=== PATIENT | female | born 2000 | race Hispanic/Latino ===

== ENCOUNTER 2023-04-04 13:35 | Emergency (ER) | payer OTHER ==
[~2023-04-04] VITALS: Ht 154.9 cm; Wt 56.7 kg
[2023-04-04 15:27] VITALS: BP 124/70; PULSE 78; RESP 18; O2SAT 98
== END 2023-04-04 15:35 | disposition home or self-care (01) ==
LOC: EDH 13:35
DX: I95.9 Hypotension, unspecified (principal); R55 Syncope and collapse; R53.1 Weakness
CPT/HCPCS: 93005

== ENCOUNTER 2023-08-03 20:04 | Emergency (ER) | payer BC, OTHER ==
[~2023-08-03] VITALS: Ht 154.9 cm; Wt 59.4 kg
[2023-08-03] MEDS: ACETAMINOPHEN 500 MG TABLET PO ONE (21:07)
[2023-08-03 21:32] LABS: RAPID GROUP A STREP positive (NEGATIVE)
[2023-08-03 21:33] LABS: SARS-CoV-2, RNA, NAAT NEGATIVE SARS CoV-2 (NEGATIVE)
[2023-08-03 21:39] LABS: INFLUENZA TYPE A Negative For Type A (NEGATIVE); INFLUENZA TYPE B Negative For Type B (NEGATIVE)
[2023-08-03 23:30] VITALS: BP 118/74; PULSE 100; RESP 20; O2SAT 100
[2023-08-04] MEDS ORDERED: PENI500T2 PO (00:05)
[2023-08-04] MEDS ORDERED: PRED20TA3 PO (00:05)
[2023-08-04] MEDS ORDERED: IBUP-2070 PO (00:05)
[2023-08-04] MEDS: CEFTRIAXONE 1G VIAL IM ONE (00:07)
[2023-08-04 00:10] VITALS: TEMP 99.1
[2023-08-04] MEDS: PREDNISONE 20 MG TABLET PO ONE (00:21)
== END 2023-08-04 00:28 | disposition home or self-care (01) ==
LOC: EDH 20:04
DX: J02.0 Streptococcal pharyngitis (principal); J45.909 Unspecified asthma, uncomplicated; Z20.822 Contact with and (suspected) exposure to COVID-19; Z98.890 Other specified postprocedural states
CPT/HCPCS: 99284; 87635; 87880; 87804 ×2; 96372; J0696

== ENCOUNTER 2024-04-19 23:54 | Emergency (ER) | payer BC ==
[~2024-04-19] VITALS: Ht 154.9 cm; Wt 59.0 kg
[~2024-04-19 23:54] MED LIST: IBUP-2070 PO; PENI500T2 PO; PRED20TA3 PO
[2024-04-20 00:16] LABS: APPEARANCE,URINE CLEAR (CLEAR); BILIRUBIN,URINE NEGATIVE (NEGATIVE); COLOR,URINE LIGHT-YELLOW (YELLOW); GLUCOSE, URINE (UA) NEGATIVE (NEGATIVE); KETONES,URINE NEGATIVE (NEGATIVE); LEUKOCYTE ESTERASE ,URINE NEGATIVE Leu/uL (NEGATIVE); NITRATE,URINE NEGATIVE (NEGATIVE); OCCULT BLOOD,URINE LARGE (NEGATIVE); PH,URINE 5.5 (5.0-8.0); PROTEIN,URINE NEGATIVE (NEGATIVE); UROBILINOGEN,URINE 0.2 mg/dL (0.2-1.0)
[2024-04-20 00:19] LABS: ADD UA MICROSCOPIC YES; HCG,QUALITATIVE URINE NEGATIVE (NEGATIVE)
[2024-04-20 00:20] LABS: BACTERIA,URINE RARE /HPF (None Seen); MUCUS,URINE RARE LPF (None Seen); SQUAMOUS EPITHELIAL CELL,UR RARE /HPF (0-2); WBC,URINE 0-1 /HPF (0-1)
[2024-04-20] MEDS: HYDROcodone/APAP 5/325 1 TAB TABLET PO ONE (00:58)
[2024-04-20 01:01] LABS: BASOPHILS # (AUTO) 0.04 K/uL (0.00-0.20); BASOPHILS % (AUTO) 0.6 % (0.0-5.0); EOSINOPHILS # (AUTO) 0.16 K/uL (0.00-0.70); EOSINOPHILS % (AUTO) 2.4 % (0.0-8.0); IMMATURE GRANULOCYTE ABSOLUTE 0.02 K/uL (0-1); LYMPHOCYTES # (AUTO) 2.8 K/uL (1.0-4.8); MEAN CORPUSCULAR HEMOGLOBIN 31.3 pg (27.0-33.0); MEAN CORPUSCULAR HGB CONC 34.1 g/dL (32.0-36.0); MONOCYTES # (AUTO) 0.6 K/uL (0.1-1.0); MONOCYTES % (AUTO) 9.1 % (3.0-13.0); NEUTROPHILS # (AUTO) 3.1 K/uL (1.8-7.7); NEUTROPHILS % (AUTO) 45.6 % (40.0-77.0); PLATELET COUNT (AUTO) 235 K/uL (130-400); RED BLOOD CELL COUNT(AUTO) 4.02 MIL/uL (4.00-5.50); RED CELL DISTRIBUTION WIDTH 10.9 % (11.0-15.5); WHITE BLOOD COUNT (AUTO) 6.7 K/uL (4.8-10.8)
[2024-04-20 01:09] LABS: CREATININE 0.9 mg/dL (0.5-1.0); POTASSIUM 4.2 mmol/L (3.5-5.1)
[2024-04-20] MEDS ORDERED: KETO10 PO (03:10)
[2024-04-20] MEDS ORDERED: ONDA-243 PO (03:10)
[2024-04-20] MEDS ORDERED: TAMS-1 PO (03:10)
--- NOTE | 2024-04-20 03:11 | ERN ---
ED Note History of Present Illness Stated Complaint: LEFT FLANK PAIN Chief Complaint: Flank Pain Time Seen by MD: 23:58 Allergies: Coded Allergies: No Known Drug Allergies (Unverified Allergy, Unknown, 04/04/23) Home Meds Active Scripts Prednisone (Prednisone) 20 Mg Tablet, 2 TAB PO DAILY for 5 Days, #10 TAB 0 Refills Prov:JAY BAUTISTA SCREENER AND BLENDER 08/04/23 Ibuprofen (Ibuprofen) 600 Mg Tablet, 600 MG PO Q6H PRN for PAIN, #30 TAB Prov:JAY BAUTISTA SCREENER AND BLENDER 08/04/23 Penicillin V Potassium (Penicillin V Potassium) 500 Mg Tablet, 500 MG PO BID for 10 Days, #20 TAB Prov:JAY BAUTISTA SCREENER AND BLENDER 08/04/23 Past Medical History Dictation 23-year-old female with past medical history of polycystic ovarian disease presents with left flank that radiates to her left groin x2 days in duration. Patient reports intermittent nausea without vomiting. Patient denies fevers cough, syncope change in appetite focal neurological deficits, abdominal and chest pain, shortness of breath, vaginal discharge Past Medical History: Asthma, High Cholesterol, Other Additional Past Medical Hx: PCOS Surgical History: None Family History: Negative Social History: Negative, Lives with family History: Not Applicable LMP: Apr 08, 2024 Review of System Dictation See HPI Initial Vital Sign VS Vital Signs Date Time Temp Pulse Resp B/P (MAP) Pulse Ox O2 Delivery O2 Flow Rate FiO2 04/19/24 23:56 97.9 78 18 121/87 99 Room Air 0 04/20/24 01:03 21 Physical Exam Dictation Uncomfortable appearing, normal BMI tenderness to left flank/CVA region, abdomen is soft, nontender, non peritoneal no suprapubic, heart rate and Results (Laboratory/Radiology) Laboratory/Radiology Laboratory Tests Test 04/20/24 00:07 04/20/24 00:52 Urine Color LIGHT-YELLOW (YELLOW) Urine Appearance CLEAR (CLEAR) Urine pH 5.5 (5.0-8.0) Urine Specific [place] 1.022 (1.001-1.031) Urine Protein NEGATIVE mg/dL (NEGATIVE) Urine Glucose (UA) NEGATIVE mg/dL (NEGATIVE) Urine Ketones NEGATIVE mg/dL (NEGATIVE) Urine Occult Blood LARGE (NEGATIVE) H Urine Nitrate NEGATIVE (NEGATIVE) Urine Bilirubin NEGATIVE mg/dL (NEGATIVE) Urine Urobilinogen 0.2 mg/dL (0.2-1.0) Urine Leukocyte Esterase NEGATIVE Carrie/uL Urine RBC 6-10 /HPF (0-1) H Urine WBC 0-1 /HPF (0-1) Urine Squamous Epithelial Cells RARE /HPF (0-2) Urine Bacteria RARE /HPF (None Seen) Urine HCG, Qualitative NEGATIVE (NEGATIVE) White Blood Count 6.7 K/uL (4.8-10.8) Red Blood Count 4.02 MIL/uL (4.00-5.50) Hemoglobin 12.6 g/dL (12.0-16.0) Hematocrit 37.0 % (36-48) Mean Corpuscular Volume 92.0 fL (79-99) Mean Corpuscular Hemoglobin 31.3 pg (27.0-33.0) Mean Corpuscular Hemoglobin Concent 34.1 g/dL (32.0-36.0) Red Cell Distribution Width 10.9 % (11.0-15.5) L Platelet Count 235 K/uL (130-400) Mean Platelet Volume 9.5 fL (7.5-10.5) Immature Granulocyte % (Auto) 0.3 % (0-1) Neutrophils (%) (Auto) 45.6 % (40.0-77.0) Lymphocytes (%) (Auto) 42.0 % (21.0-51.0) Monocytes (%) (Auto) 9.1 % (3.0-13.0) Eosinophils (%) (Auto) 2.4 % (0.0-8.0) Basophils (%) (Auto) 0.6 % (0.0-5.0) Neutrophils # (Auto) 3.1 K/uL (1.8-7.7) Lymphocytes # (Auto) 2.8 K/uL (1.0-4.8) Monocytes # (Auto) 0.6 K/uL (0.1-1.0) Eosinophils # (Auto) 0.16 K/uL (0.00-0.70) Basophils # (Auto) 0.04 K/uL (0.00-0.20) Absolute Immature Granulocyte (auto 0.02 K/uL (0-1) Nucleated Red Blood Cells 0.0 % (0.0-0.19) Sodium Level 138 mmol/L (136-145) Potassium Level 4.2 mmol/L (3.5-5.1) Chloride Level 105 mmol/L (101-111) Carbon Dioxide Level 26 mmol/L (21-32) Blood Urea Nitrogen 9 mg/dL (7-18) Creatinine 0.9 mg/dL (0.5-1.0) Glomerular Filtration Rate Calc 92 mL/min (>90) Random Glucose 101 mg/dL (70-105) Total Calcium 9.0 mg/dL (8.5-10.1) Lipase 48 U/L (16-77) Human Chorionic Gonadotropin, Quant 0 mIU/mL (0-5) ED Course ED Course Orders Procedure Category Date Status Time Urinalysis Profile LAB 04/20/24 Complete 00:01 ,Urine Test LAB 04/20/24 Complete 00:01 Cbc With Differential LAB 04/20/24 Complete 00:21 Basic Metabolic Panel LAB 04/20/24 Complete 00:21 Hcg,Quantitative LAB 04/20/24 Complete 00:21 Lipase LAB 04/20/24 Complete 00:21 Ct Abdomen/Pelvis W/O CT 04/20/24 Taken Contrast 00:21 Hydrocodone/Apap PHA 04/20/24 Complete 5/325 ([place] 5/325mg) 00:30 Current Medications Medications (Trade) Dose Ordered Sig/Jaja Route PRN Reason Start Time Stop Time Status Last Admin Dose Admin Acetaminophen/ Hydrocodone Bitart (NORco 5/325MG) 1 tab ONCE ONCE PO 04/20/24 00:30 04/20/24 00:31 DC 04/20/24 00:58 Vital Signs Date Time Temp Pulse Resp B/P (MAP) Pulse Ox O2 Delivery O2 Flow Rate FiO2 04/20/24 02:36 98.1 76 16 115/65 99 Room Air* 0 04/20/24 01:03 98.2 79 16 113/59 100 Room Air* 0 04/19/24 23:56 97.9 78 18 121/87 99 Room Air 0 Medical Decision Making MDM ddx: Nephrolithiasis versus ovarian torsion versus pyelonephritis versus ectopic All diagnostics interpreted by me unless otherwise stated HCG negative for . Doubt have . Lipase within normal limits. Doubt acute pancreatitis. Hemoglobin within normal limits. Doubt acute blood loss anemia. CT abdomen and pelvis shows no evidence of urolithiasis; however, UA is positive for blood. Suspect either passed stone or occult stone. We will treat patient with kidney stone medications. Upon re-evaluation, patient remains hemodynamically stable. Patient's symptoms have improved. Discussed ED workup patient. Recommend close primary care follow up. Return precautions given. Invited and answered all questions prior to discharge. DX & DISP Disposition: Discharge Departure Impression: Primary Impression: Acute flank pain Additional Impression: Hematuria Condition: Stable Scripts Tamsulosin HCl (Flomax) 0.4 Mg Cap.er.24h 1 CAP PO DAILY for 10 Days, #30 CAP 0 Refills Prov: EULALIA WARD DO 04/20/24 Ondansetron (Ondansetron Odt) 4 Mg Tab.rapdis 1 TAB PO Q6HPRN PRN for nausea/vomiting for 4 Days, #16 TAB 0 Refills Prov: EULALIA WARD DO 04/20/24 Ketorolac Tromethamine (Toradol) 10 Mg Tab 10 MG PO Q4PRN for 7 Days, #30 TAB Prov: EULALIA WARD DO 04/20/24 Additional Instructions: Please follow up with urology next available appointment. Please follow up with primary care physician next available appointment. Please return to emergency department immediately if you can not urinate, worsening kidney pain, has continuous nausea and vomiting Referrals: SANDRA FERNÁNDEZ MD (PCP) KALI MEDINA MD Time of Disposition: 03:07 EULALIA WARD DO Apr 20, 2024 03:11
[2024-04-20 03:47] VITALS: BP 112/62; PULSE 71; RESP 16; TEMP 98.4; O2SAT 99
--- NOTE | 2024-04-20 08:28 | HMCIMG ---
Exam Type: CT ABDOMEN/PELVIS W/O CONTRAST Clinical Information: ab pain Comparison: None CT Dose Index (CTDI): 10.20 mGy Dose Length Product (DLP): 530.00 total mGy-cm PROTOCOL: Routine noncontrast helical scanning of the abdomen and pelvis was performed at 5mm collimation. Findings: No evidence of nephro or ureterolithiasis is found. No hydronephrosis or ureteral dilatation is seen. The lung bases are clear. The stomach is unremarkable. It shows no wall thickening. No gross ulceration is seen. It is not overly distended. There are no surrounding inflammatory changes. No wall lesions are identified to suggest cancer. The spleen is unremarkable. It is not enlarged. The pancreas shows normal anatomy. It is not fatty replaced. It shows no lesions. The pancreatic duct is not dilated. The gallbladder is unremarkable. It shows no cholelithiasis. The gallbladder wall is normal in thickness. There is no pericholecystic fluid. The is no acute or chronic inflammation noted. The adrenal glands are unremarkable. There is no enlargement. No lesions are noted. The liver is unremarkable. It shows no focal masses. The appendix is unremarkable. It shows no evidence of inflammation. No appendicolith is seen. The small bowel is unremarkable. There is no evidence of dilatation to suggest obstruction. No evidence of adynamic ileus is seen. There is no small bowel wall thickening to suggest enteritis. The colon is unremarkable. The urinary bladder is unremarkable. There is no wall thickening to suggest tumor or inflammation. There are no intraluminal calculi. There are no diverticula. There is no evidence of chronic bladder outlet obstruction. There is no evidence of urinary bladder distention to suggest urinary retention. The other pelvic structures are unremarkable. The bony and vascular structures are unremarkable for the patient's age. IMPRESSION: NEGATIVE CT SCAN OF THE ABDOMEN AND PELVIS. NO RENAL STONES. NO ACUTE PATHOLOGY OR INFLAMMATION SEEN. This study was performed using dose reduction techniques to include automated exposure control and/or adjustment of the mA and/or kV according to patient size.
== END 2024-04-20 03:50 | disposition home or self-care (01) ==
LOC: EDH 23:54
DX: R10.84 Generalized abdominal pain (principal); R31.9 Hematuria, unspecified; R10.2 Pelvic and perineal pain; E78.00 Pure hypercholesterolemia, unspecified; J45.909 Unspecified asthma, uncomplicated; Z79.52 Long term (current) use of systemic steroids; Z79.899 Other long term (current) drug therapy
CPT/HCPCS: 36415; 74176; 80048; 81001; 81025; 83690; 84702; 85025; 99284

== ENCOUNTER 2025-01-26 23:57 | Emergency (ER) | payer BC ==
[~2025-01-26] VITALS: Ht 160 cm; Wt 65.3 kg
[~2025-01-26 23:57] MED LIST changes: +IBUP-1492 PO; -IBUP-2070 PO; +KETO10 PO; +ONDA-243 PO; +TAMS-55 PO
[2025-01-27 00:33] LABS: APPEARANCE,URINE CLEAR (CLEAR); GLUCOSE, URINE (UA) NEGATIVE (NEGATIVE); LEUKOCYTE ESTERASE ,URINE NEGATIVE Leu/uL (NEGATIVE); NITRATE,URINE NEGATIVE (NEGATIVE); OCCULT BLOOD,URINE MODERATE (NEGATIVE)
[2025-01-27 00:35] LABS: ADD UA MICROSCOPIC YES
[2025-01-27 00:36] LABS: SQUAMOUS EPITHELIAL CELL,UR RARE /HPF (0-2)
--- NOTE | 2025-01-27 00:37 | NUR ---
PATIENT TAKEN TO ULTRASOUND BY BUSINESS LAW PROFESSOR.
[2025-01-27 00:42] LABS: IMMATURE GRANULOCYTE ABSOLUTE 0.01 K/uL (0-1); NUCLEATED RED BLOOD CELLS 0.0 % (0.0-0.19); PLATELET COUNT (AUTO) 245 K/uL (130-400); RED BLOOD CELL COUNT(AUTO) 4.00 MIL/uL (4.00-5.50); RED CELL DISTRIBUTION WIDTH 11.2 % (11.0-15.5); WHITE BLOOD COUNT (AUTO) 6.7 K/uL (4.8-10.8)
[2025-01-27 00:50] LABS: CREATININE 0.8 mg/dL (0.5-1.0); GLOMERULAR FILTR. RATE CALC 105.0 mL/min (>90); GLUCOSE,RANDOM 100.0 mg/dL (70-105); SODIUM SERUM 139.0 mmol/L (136-145); UREA NITROGEN, BLOOD 13.0 mg/dL (7-18)
--- NOTE | 2025-01-27 01:23 | ERN ---
ED Note History of Present Illness Stated Complaint: BILATEREAL PELVIC PAIN Chief Complaint: Pelvic Pain Time Seen by MD: 00:09 Time Seen by Midlevel: 00:10 Dictation: 24-year-old female presents to the emergency department due to reported having pelvic abdominal pain for which she is concerned due to having a history of ovarian cysts associated with her polycystic ovarian syndrome. She states that she is currently on control from her OB. At this time, she denies having any fever, chills, nausea, vomiting, diarrhea, hematuria, vaginal bleeding or vaginal discharge. The patient states that her last ovarian cyst was appro ximately 1 year ago. Currently, she states that her cramping is intermittent. At this time, she rates her level of discomfort as a 1/10. The discomfort is described as being aching in nature. Upon initial evaluation, the patient presents in no acute distress. Allergies: Coded Allergies: No Known Drug Allergies (Unverified Allergy, Unknown, 04/04/23) Emergency Care INDUSTRY ANALYST: None Home Meds Active Scripts Tamsulosin HCl (Flomax) 0.4 Mg Cap.er.24h, 1 CAP PO DAILY for 10 Days, #30 CAP 0 Refills Prov:EULALIA WARD DO 04/20/24 Ondansetron (Ondansetron Odt) 4 Mg Tab.rapdis, 1 TAB PO Q6HPRN PRN for nausea/vomiting for 4 Days, #16 TAB 0 Refills Prov:EULALIA WARD 04/20/24 Ketorolac Tromethamine (Toradol) 10 Mg Tab, 10 MG PO Q4PRN for 7 Days, #30 TAB Prov:SIAEULALIA WILDER DO 04/20/24 Prednisone (Prednisone) 20 Mg Tablet, 2 TAB PO DAILY for 5 Days, #10 TAB 0 Refills Prov:JAY BAUTISTA DERRICK CAR OPERATOR 08/04/23 Ibuprofen (Ibuprofen) 600 Mg Tablet, 600 MG PO Q6H PRN for PAIN, #30 TAB Prov:JAY BAUTISTA DERRICK CAR OPERATOR 08/04/23 Penicillin V Potassium (Penicillin V Potassium) 500 Mg Tablet, 500 MG PO BID for 10 Days, #20 TAB Prov:BAUTISTAKAEJAY DERRICK CAR OPERATOR 08/04/23 Past Medical History Past Medical History: Asthma, High Cholesterol, Other Additional Past Medical Hx: PCOS Surgical History: None PSYCH History: no pertinent psych hx Family History: Negative Social History: Negative, Lives with family History: Not Applicable LMP: Jan 05, 2025 RN Note Reviewed/Agreed w/PFSH: Yes Review of System Dictation Abdomen/GI: Abdominal cramping Initial Vital Sign VS Vital Signs Date Time Temp Pulse Resp B/P (MAP) Pulse Ox O2 Delivery O2 Flow Rate FiO2 01/26/25 23:58 98.2 82 20 115/68 100 Room Air 01/27/25 00:14 0 21 Physical Exam Dictation General: awake, alert, NAD Head/Face: Normocephalic, atraumatic Eyes: PERRL, EOMI ENT: Oral mucosa moist Neck: Trachea midline, supple Cardiovascular: RRR, no edema Respiratory: Symmetrical, non-labored Abdomen: Soft, non-tender, non-distended, no guarding. Skin: Warm, dry, good turgor, no rash MS/Extremity: Pulses equal, no cyanosis, neurovascular intact, FROM Neuro: COAx4, GCS 15, steady gait, Psych: Normal behavior, mood, and affect normal Results (Laboratory/Radiology) Laboratory/Radiology Laboratory Tests Test 01/27/25 00:26 01/27/25 00:35 Urine Color LIGHT-YELLOW (YELLOW) Urine Appearance CLEAR (CLEAR) Urine pH 6.5 (5.0-8.0) Urine Specific [place] 1.025 (1.001-1.031) Urine Protein NEGATIVE mg/dL (NEGATIVE) Urine Glucose (UA) NEGATIVE mg/dL (NEGATIVE) Urine Ketones NEGATIVE mg/dL (NEGATIVE) Urine Occult Blood MODERATE (NEGATIVE) H Urine Nitrate NEGATIVE (NEGATIVE) Urine Bilirubin NEGATIVE mg/dL (NEGATIVE) Urine Urobilinogen 0.2 mg/dL (0.2-1.0) Urine Leukocyte Esterase NEGATIVE Carrie/uL Urine RBC 26-50 /HPF (0-1) H Urine WBC 2-5 /HPF (0-1) H Urine Squamous Epithelial Cells RARE /HPF (0-2) Urine Bacteria None /HPF (None Seen) White Blood Count 6.7 K/uL (4.8-10.8) Red Blood Count 4.00 MIL/uL (4.00-5.50) Hemoglobin 12.6 g/dL (12.0-16.0) Hematocrit 37.8 % (36-48) Mean Corpuscular Volume 94.5 fL (79-99) Mean Corpuscular Hemoglobin 31.5 pg (27.0-33.0) Mean Corpuscular Hemoglobin Concent 33.3 g/dL (32.0-36.0) Red Cell Distribution Width 11.2 % (11.0-15.5) Platelet Count 245 K/uL (130-400) Mean Platelet Volume 9.4 fL (7.5-10.5) Immature Granulocyte % (Auto) 0.2 % (0-1) Neutrophils (%) (Auto) 50.9 % (40.0-77.0) Lymphocytes (%) (Auto) 37.0 % (21.0-51.0) Monocytes (%) (Auto) 9.5 % (3.0-13.0) Eosinophils (%) (Auto) 1.8 % (0.0-8.0) Basophils (%) (Auto) 0.6 % (0.0-5.0) Neutrophils # (Auto) 3.4 K/uL (1.8-7.7) Lymphocytes # (Auto) 2.5 K/uL (1.0-4.8) Monocytes # (Auto) 0.6 K/uL (0.1-1.0) Eosinophils # (Auto) 0.12 K/uL (0.00-0.70) Basophils # (Auto) 0.04 K/uL (0.00-0.20) Absolute Immature Granulocyte (auto 0.01 K/uL (0-1) Nucleated Red Blood Cells 0.0 % (0.0-0.19) Sodium Level 139 mmol/L (136-145) Potassium Level 4.5 mmol/L (3.5-5.1) Chloride Level 106 mmol/L (101-111) Carbon Dioxide Level 26 mmol/L (21-32) Blood Urea Nitrogen 13 mg/dL (7-18) Creatinine 0.8 mg/dL (0.5-1.0) Glomerular Filtration Rate Calc 105 mL/min (>90) Random Glucose 100 mg/dL (70-105) Total Calcium 9.1 mg/dL (8.5-10.1) Labs Reviewed?: Yes ED Course ED Course Orders Procedure Category Date Status Time Cbc With Differential LAB 01/27/25 Complete 00:19 Basic Metabolic Panel LAB 01/27/25 Complete 00:19 Urinalysis Profile LAB 01/27/25 Complete 00:19 Saline Lock Iv CPOE 01/27/25 Transmitted 00:21 Us Pelvic Non-Ob Comp US 01/27/25 Taken 00:22 0.9%Nacl 1000ml (Ns PHA 01/27/25 Complete 1000ml) 00:30 Current Medications Medications (Trade) Dose Ordered Sig/Jaja Route PRN Reason Start Time Stop Time Status Last Admin Dose Admin Sodium Chloride 1,000 ml @ 0 mls/hr ONCE ONCE IV 01/27/25 00:30 01/27/25 00:31 DC Vital Signs Date Time Temp Pulse Resp B/P (MAP) Pulse Ox O2 Delivery O2 Flow Rate FiO2 01/27/25 00:14 98.4 89 18 118/78 100 Room Air* 0 21 01/26/25 23:58 98.2 82 20 115/68 100 Room Air Medical Decision Making MDM MDM: Differential diagnosis: Suprapubic pain, ovarian cyst, ovarian torsion. Rationale: Tests considered and ordered secondary to shared decision making include: Previous outside records reviewed: Old ER visits. Risk of complication and/or morbidity or mortality of patient management: None Medications-Per medication reconciliation Need for hospitalization: Patient does not meet criteria for hospitalization. Need for emergency major/minor surgery: No There are no social concerns with this patient. Prescription drug management Prescriptions will include symptomatic care Patient's prior external medical records from other ER visits were reviewed by me as indicated. Prior testing and results from previous visits were reviewed. Prior tests were taken into account with medical decision making and resource utilization, independent historian/historians were used to obtain complete medical history. I independently interpreted the test that were performed, results were reviewed by me and considered findings on radiology if ordered. Medical management and examination interpretation discussions were had by me with other qualified healthcare professionals as indicated for the patient's care. DX & DISP Disposition: Discharge Departure Impression: Primary Impression: Suprapubic pain Condition: Stable Referrals: SANDRA FERNÁNDEZ MD (PCP) Time of Disposition: 01:22 GINGER RIDLEY Jan 27, 2025 01:23
--- NOTE | 2025-01-27 01:27 | HMCIMG ---
EXAM: US Pelvis, Complete. CLINICAL HISTORY: Pain. LMP - 11/04/2024. TECHNIQUE: Transabdominal pelvic ultrasound (complete) with image documentation. COMPARISON: CT abdomen and pelvis dated 04/20/2024. FINDINGS: ENDOMETRIUM: Normal thickness (0.4 cm). UTERUS/CERVIX: The uterus appears within normal limits ( 5.6 x 2.8 x 2.7 cm). No uterine fibroid or other mass evident. RIGHT OVARY: There appears to be normal Doppler flow on transabdominal images. No abnormal mass. It measures 1.6 x 1.5 x 1.4 cm. LEFT OVARY: There appears to be normal Doppler flow on transabdominal images. No abnormal mass. It measures 2.0 x 1.2 x 1.6 cm. FREE FLUID: No free fluid. Increased intestinal air. IMPRESSION: Unremarkable transabdominal pelvic ultrasound. /Estela
[2025-01-27] MEDS: 0.9%NACL 1000ML 1,000 ML IV ONE (01:30)
[2025-01-27 01:52] VITALS: BP 121/70; PULSE 80; RESP 18; TEMP 98.2; O2SAT 100
== END 2025-01-27 01:55 | disposition home or self-care (01) ==
LOC: EDH 23:57
DX: R10.21 Pelvic and perineal pain right side (principal); E78.00 Pure hypercholesterolemia, unspecified; J45.909 Unspecified asthma, uncomplicated; Z79.52 Long term (current) use of systemic steroids
CPT/HCPCS: 36415; 76856; 80048; 81001; 85025; 99284; J7030